=== PATIENT | female | born 1965 | race Caucasian/White ===

== ENCOUNTER → 2017-01-06 | Outpatient (CLI) | payer BC, OTHER ==
[~2017-01-06] VITALS: Ht 162.6 cm; Wt 75.1 kg
[~2017-01-06] MED LIST: AMBIEN 10 MG TA10 MG PO; AMBIEN CR12.5 MG PO; B-100 COMPLEX1 EAC1 PO; BISACODYL SUPP10 MG RE; CALCIUM; CALCIUM 500 +1 EAC5 PO; CELEBREX 200 M200 MG PO; CITRATE OF MAG296 ML PO; CLARITIN10 MG PO; EFFEXOR XR150 MG PO; FISH OIL + D31 EACH PO; FISHOIL; FLEXERIL PO; HYDROCODON-ACE1 EAC7 PO; HYDROCODON-ACE1 EAC8 PO; HYDROCODONE-AP1 EAC6 PO; HYDROCODONE-APA1 TA1 PO; LEVOTHYROXIN0.088 MG PO; MAGNESIUM250 M1 PO; MIRALAX255 GM PO; MOBIC15 MG PO; NABUMETONE 750750 M1 PO; NEURONTIN 300300 M1 PO; OMEPRAZOLE 20 M20 M1 PO; PERCOCET 5-3251 EACH PO; SYNTHROID50 MCG PO; TRAMADOL 50 MG50 MG PO; TRIAMCINOLONE16.5 GM NASAL; VITAMIN B-12100 MCG PO; VITAMIN D400 UNI1 PO; VOLTAREN GEL 1100 G1 TOP; VOLTAREN100 GM TP
--- NOTE | ~2017-01-06 | HPC ---
[facility] [place] [address] PAIN MANAGEMENT CONSULTATION Name: IZZY HORN CHIVO Room #: REG TROY Flores#: [id number] Admission: 01/06/17 Attend Phys: Delon Reyna DO Discharge: Date of : 67 Report #: [id number] THIS REPORT FOR: //name// CC: SLIME Reyna The patient is a very pleasant 51-year-old female well known to the pain clinic, typically treated for lumbar radiculopathy, myofascial pain, component of right ankle pain, all requiring complex medication management. She was last seen in the pain clinic 05/24/2016. Continued on baseline medications including meloxicam 15 mg 1 a day, Flexeril 10 mg up to t.i.d., Voltaren gel topically for low back, tramadol and hydrocodone for pain, tramadol 1 tablet t.i.d., #90 tablets with 5 refills and hydrocodone 5/325 mg #90 tablets, prescription was written for quite sometime ago. She uses it very infrequently, it appears that the last prescription was in 2014. The patient returns to pain clinic today. She notes she had been doing reasonably well with baseline concerns, right ankle had healed status post prior strain, gradual return of radicular component of pain, low back, right groin to the knee. She prior had epidural injections, right transforaminal epidural injection about a year and a half ago in April 2015, midline epidural injections in 2013. Today, she notes pain is 5/10, seems to be exacerbated with sitting and walking, driving. Gets some relief with standing with medications. PHYSICAL EXAMINATION: Shows 51-year-old female, BMI is 28.4 kilograms per meter squared. Vital signs stable as noted in the EMR. Rises from chair using armrest. Modestly antalgic gait, diffuse tenderness across the low back, positive straight leg raise on the right, decreased right hip flexion strength, positive neural tensioning patellar reflexes are brisk 3/4. Achilles reflexes 1-2/4, upper extremity deep tendon reflexes, biceps, triceps, brachioradialis1-2/4 and symmetric. K-tracs was run showing no opiate prescriptions for the past year. IMPRESSION: Myofascial pain, axial back pain and right ankle pain requiring complex medication management, stable on baseline medication. RECOMMENDATION: 1. Renew meloxicam 15 mg 1 a day, #30 tablets with 5 refills, Flexeril 10 mg b.i.d., #60 tablets with 5 refills, tramadol 50 mg t.i.d., #90 tablets with 5 refills. We will also renew hydrocodone 5/325 mg one tablet 2-3 times a day as needed for pain, limit #45 tablets typically this should last greater than a year. 2. Acute exacerbation of lumbar radiculopathy with right radicular pattern at L3 distribution. [address] [address] PAIN MANAGEMENT CONSULTATION Name: IZZY HORN [facility] Room #: REG TROY Flores#: [id number] Admission: 01/06/17 Attend Phys: Delon Reyna DO Discharge: Date of : 67 Report #: [id number] 3. Recommendation of epidural injection under fluoroscopy today at L3-L4. PROCEDURE NOTE: Lumbar epidural injection under fluoroscopy. PROCEDURE NOTE: After both written and informed consent to include risk of spinal cord damage, increased pain, weakness and dural puncture, the patient was taken to the fluoroscopy suite, placed in the prone position. After sterile prep and drape, a skin wheal with lidocaine was raised. A 22-gauge epidural Tuohy needle was inserted in the midline at L3-4 with good loss to resistance. Negative aspiration for cerebrospinal fluid or blood was noted. Then 1 mL of Omnipaque under biplanar fluoroscopy showed good spread within the epidural space. This was followed with 80 mg of triamcinolone plus 1 mL of 1.5% preservative-free Xylocaine, 0.5 mL Xylocaine was then injected to flush the needle; it was removed. The patient was monitored for an appropriate period of time and discharged in good and stable condition. By: [id number] Delon Reyna DO /nt
[2017-01-06 13:21] VITALS: BP 142/86
== END | disposition home or self-care (01) ==
LOC: PAIN 06:55
DX: M54.16 Radiculopathy, lumbar region (principal); M79.1 Myalgia; M25.571 Pain in right ankle and joints of right foot

== ENCOUNTER → 2017-09-01 | Outpatient (CLI) | payer BC, OTHER ==
[~2017-09-01] VITALS: Ht 162.6 cm; Wt 74.8 kg
--- NOTE | ~2017-09-01 | HPC ---
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 The patient has been stable on baseline medications including p.r.n. tramadol, rare hydrocodone, Meloxicam 15 mg daily, and cyclobenzaprine 10 mg b.i.d. p.r.n. Last seen in the pain clinic about 8 months ago in December 2016. The patient was given an epidural injection at that time for recurrent L3 radicular pattern and continued on baseline medications. She returns to pain clinic today noting medications are helpful, though she has developed recurrent pain recently. She notes the epidural injection at last visit afforded nearly 80% relief for 2 months, pain has recurred somewhat, but she notes overall she still has improved. She rates her subjective pain score of 4 on a VAS, pain is in the right low back, hip and groin. To the patient's credit, she is doing daily physical therapy stretches, which has been efficacious. She notes pain is getting a little worse when she ran out of Meloxicam. She notes the pain is exacerbated with sitting, driving, or climbing stairs. PHYSICAL EXAMINATION: Shows a 52-year-old female, BMI is 28.3 kg/m2. Vital signs stable as noted in the EMR. Rises from chair easily. Gait is tandem. Lower extremity strength is preserved. Modestly positive straight leg raise on the right with a slightly diminished right Achilles reflex compared to left. Patellar reflexes are preserved. She does have some subjective pain in the low back, no discrete trigger points are noted. The patient is having no problems with daytime somnolence, mental acuity changes or constipation. Behavior shown no aberrant behavior suggestive for drug diversion. ASSESSMENT: Symptomatic lumbar radiculopathy by history with acute right L5 radicular pain pattern, myofascial pain component, requiring complex medication management. RECOMMENDATIONS: 1. Resume Meloxicam 15 mg 1 a day, we did talk briefly about daily use of nonsteroidal anti-inflammatory agents and possible association of increased cardiac risk. Continue cyclobenzaprine 10 mg up to b.i.d. for spasm, again suggested nondaily usage; tramadol 50 mg 3-4 a day caution with concurrent use [address] [address] PAIN MANAGEMENT CONSULTATION Name: IZZY HORN Room #: REG TROY Flores#: [id number] Admission: 09/01/17 Attend Phys: Delon Reyna DO Discharge: Date of : 67 Report #: [id number] of selective serotonin reuptake inhibiting agent (the patient's venlafaxine was recently increased). 2. Continue Voltaren gel topically and rare use hydrocodone 5/325, dispense 45 tablets, again this lasted about 8 months last time. We will seek authorization for epidural injection under fluoroscopy at L5-S1, right of midline. She is planning on taking a [place] in early September, she would like to have epidural injection prior to that if symptoms continue. We will plan on followup appointment in early September, cancel if doing well. <ELECTRONICALLY SIGNED> By: Delon Reyna DO 09/05/17 0943 [id number] Delon Reyna DO /nt
[2017-09-01 11:30] VITALS: BP 128/80
[2017-09-01 11:33] VITALS: BP 128/80
== END ==
LOC: PAIN 08-08 07:14
DX: M54.16 Radiculopathy, lumbar region (principal); M25.571 Pain in right ankle and joints of right foot; Z79.899 Other long term (current) drug therapy

== ENCOUNTER → 2018-04-10 | Outpatient (CLI) | payer BC, OTHER ==
[~2018-04-10] VITALS: Ht 162.6 cm; Wt 74.2 kg
--- NOTE | ~2018-04-10 | HPC ---
[facility] [place] [address] PAIN MANAGEMENT CONSULTATION Name: IZZY HORN Room #: REG TROY TreverRubenNayana#: [id number] Admission: 04/10/18 Attend Phys: Ana Boyd MD Discharge: Date of : 67 Report #: [id number] THIS REPORT FOR: //name// CC: SLIME Boyd Physician staff DATE OF SERVICE: 04/10/2018 FOLLOWUP HISTORY: The patient is a 53-year-old female who has been followed in the Pain Clinic for quite some time. She has pain and discomfort involving her low back, left groin as well as her left upper leg. Feels that her medications are helpful. Rates her pain as a 2/10 with their use. Notes that she sometimes has a chronic shooting, burning discomfort. Pain is exacerbated by walking, standing or lying on the left side. Use of her medications as well as stretching are helpful. She continues to work. Feels that the Meloxicam, Flexeril, Voltaren and tramadol continuing to be efficacious and would like to have their use continued. ALLERGIES: No known drug allergies. MEDICATIONS: Flexeril 10 mg b.i.d., tramadol 50 mg q.i.d., Meloxicam 15 mg daily, Voltaren 100 mg t.i.d. p.r.n., Synthroid 0.088 mcg, Ambien 12.5 mg, triamcinolone spray nasal, Claritin 10 mg, vitamin B12 100 mcg, and Effexor 150 mg. PAST MEDICAL HISTORY: Hypothyroidism: Irritable bowel, stomach problems. PAST SURGICAL HISTORY: Unremarkable. SOCIAL HISTORY: She is a registered nurse continues to work. PAIN CLINIC ASSESSMENT: 1. The patient is not being treated for osteoarthritis. 2. The patient is not being treated for rheumatoid arthritis. 3. Height 5 feet 4 inches, weight 163 pounds, BMI is 28. 4. Vital signs: Blood pressure 136/93, pulse 94, respiratory rate 16, room air saturation 99%. 5. Pain intensity 11/01. 6. Fall risk. The patient has not fallen in the last 3 months. 7. Blood thinner. The patient is not on a blood thinning medication. 8. Hypertension. The patient has not been treated for hypertension. 9. Opioid therapy greater than 6 weeks. The patient is on contract and receives tramadol medication from the pain clinic. 10. Risk assessment tool, low risk for opioid use. 11. Functional assessment tool 43/70. [address] [address] PAIN MANAGEMENT CONSULTATION Name: IZZY HORNNADER Room #: REG [facility]#: [id number] Admission: 04/10/18 Attend Phys: Ana Boyd MD Discharge: Date of : 67 Report #: [id number] 12. Recreational drug use. The patient denies use of recreational drugs. 13. Tobacco: The patient does not smoke. 14. Alcohol. The patient drinks about one alcoholic beverage monthly. PHYSICAL EXAMINATION: GENERAL: The patient is a well-developed, well-nourished white female, appears her stated age. She is alert and oriented x 3. Affect is appropriate. HEENT: Normocephalic, atraumatic. Extraocular eye muscles intact. Sclerae are nonicteric. Mucous membranes are moist. NECK: Without adenopathy or JVD. HEART: Regular rate. ABDOMEN: Nontender. EXTREMITIES: Upper extremities, judged to be 5/5 in the major muscle groups. The patient does have some myofascial pain, discomfort involving her right ankle historically. Also, has a history of lumbar radiculopathy by history. She has undergone epidural steroid injections for a L3 lumbar radicular dermatomal distribution. Notes that has been helpful. Has some pain and discomfort in the right low back as well as the hip and groin area. IMPRESSION: 1. History of lumbar radicular pain improved with epidural steroid injection in the past. 2. Myofascial pain involving the right ankle. 3. Muscle spasms. 4. Hypothyroidism. 5. Allergies, nasal allergies. RECOMMENDATIONS: We discussed treatment options with the patient. At this juncture She will continue with her current use of meloxicam, Flexeril, Voltaren gel t.i.d. and tramadol 50 mg q.i.d. as needed. She will follow up in the near future. We would like to thank you for letting us participate in her care. We hope she continues to improve. By: [id number] Ana Boyd MD /beny
[2018-04-10 14:16] VITALS: BP 136/93
== END ==
LOC: PAIN 09-25 07:20
DX: E03.9 Hypothyroidism, unspecified (principal); M79.1 Myalgia; M54.5 Low back pain

== ENCOUNTER → 2018-10-30 | Outpatient (CLI) | payer BC, OTHER ==
[~2018-10-30] VITALS: Ht 162.6 cm; Wt 74.4 kg
[~2018-10-30] MED LIST changes: -EFFEXOR XR150 MG PO; +EFFEXOR XR75 MG PO; +ESTRADIOL1 EAC2 TRANSDERM; +MEDROLDOSEPACK PO; +QSYMIA 7.5 MG-1 EACH PO
[2018-10-30 12:43] VITALS: BP 128/83
--- NOTE | 2018-10-30 12:51 | NUR ---
Pain Clinic Assessment: 1. History of Osteoarthritis: Not Applicable History of Rheumatoid Arthritis: Not Applicable 2. Height: 5 ft. 4 in. 162.6 cm. Weight: 164.0 lb. oz. 74.390 kg. Patient's BMI: 28.1 3. Vital Signs: BP: 128/83 Pulse: 86 Resp: 14 Temp: 02 Sat: 99 ECG Mon: 4. Pain Intensity: 5-6 TODAY 5. Fall Risk: Dizziness: N Needs help standing or walking: N Fallen in the last 3 months: N Fall risk comments: 6. Patient on Blood Thinner: None 7. History of Hypertension: N 8. Opioid Therapy greater than 6 weeks: Y Opiate Contract Signed: 9. Risk Assessment Tool Provided: LOW RISK 09/24 10. Functional Assessment Tool: 11. Recreational Drug Use: Never Drug Type: Tobacco Use: Never Smoker Tobacco Type: Amount or Packs/day: How Many Years: Alcohol Use: Yes Frequency: Quant:
--- NOTE | 2018-11-04 08:13 | HPC ---
[facility] [address] [address] PAIN MANAGEMENT CONSULTATION Name: IZZY HORNNADER Room #: REG TROY Sandra#: [id number] Admission: 10/30/18 Attend Phys: Ana Boyd MD Discharge: Date of : 67 Report #: [id number] THIS REPORT FOR: //name// CC: SLIME Boyd Physician staff DATE OF SERVICE: 10/30/2018 CHIEF COMPLAINT: Here for medication renewal. I am having pain down in my sciatic nerve. FOLLOWUP HISTORY: The patient is a 53-year-old female. She has been followed in the pain clinic because of chronic pain. She has been experiencing her low back and has noted increased pain in the right groin area. Pain is radiating down into the buttocks, posterior thigh and down into the lateral portion of her foot. Describes as a burning, constant, shooting, rates it as a 5-6 at this point. Pain is exacerbated with prolonged sitting, walking or lying on her left side, improves with stretching as well as with her medications. Feels that her medications of tramadol, cyclobenzaprine, Voltaren gel and Mobic continue to be efficacious. She would like to have these medications renewed. She has been following her 's health is quite closely. She developed a nodule in the roof of his mouth had a positive nodule on his neck. She received chemotherapy for a number of months for this. Things at this point seem to be doing reasonably well. ALLERGIES: No known drug allergies. CURRENT MEDICATIONS: Flexeril 10 mg b.i.d., tramadol 50 mg, meloxicam 15 mg, Voltaren 100 mg t.i.d., Synthroid 0.088 mcg, Ambien 12.5 mg, triamcinolone nasal spray, Claritin 10 mg, vitamin B12 100 mcg, Effexor 150 mg. PAIN CLINIC ASSESSMENT/PQRS: 1. The patient is not being treated for osteoarthritis. She has not been treated for rheumatoid arthritis. 2. Height 5 feet 4 inches, weight 164 pounds, BMI is 28. 3. Vital signs: Blood pressure 128/83, pulse 86, respiratory rate 14, room air saturation 99%. 4. Pain intensity 5-6/10. 5. Fall risk. The patient has not fallen in the last 3 months. 6. Blood thinner. The patient is not on a blood thinning medication. 7. Hypertension. The patient is not being treated for hypertension. 8. Opioid greater than 6 weeks. The patient received some medications and use tramadol to help control her pain. 9. Risk assessment tool 1/3 low risk for opioid use. 10. Functional assessment tool 43/70, recreational [place] [address] PAIN MANAGEMENT CONSULTATION Name: IZZY HORN Room #: REG [facility] Sandra#: [id number] Admission: 10/30/18 Attend Phys: Ana Boyd MD Discharge: Date of : 67 Report #: [id number] denies use of recreational drugs. 11. Tobacco: The patient has never smoked. 12. Alcohol: The patient drinks alcoholic beverages on rare occasion. PHYSICAL EXAMINATION: GENERAL: The patient is a well-developed, well-nourished white female. Appears her stated age. She is alert and oriented x 3. Her affect is appropriate. Speech is fluent. HEENT: Normocephalic, atraumatic. Extraocular eye muscles intact. Sclerae nonicteric. Mucous membranes are moist. NECK: Without adenopathy or JVD. HEART: Regular. ABDOMEN: Nontender. Bowel sounds present. EXTREMITIES: Upper extremity muscle strength is judged to be 5/5 for the major muscle groups in the upper extremity. The patient without significant scoliosis, kyphosis or lordosis. She is experiencing pain and discomfort in the L5-S1 dermatomal distribution on the right with pain that is radiating down her buttocks, posterior portion of her thigh, calf area and lateral portion of her foot. IMPRESSION: 1. History of lumbar radicular pain, L5-S1 dermatomal distribution. 2. Myofascial pain involving the right ankle. 3. Muscle spasms. 4. Hypothyroidism. 5. Allergies. 6. with recent chemotherapy for malignancy (lymphoma). RECOMMENDATIONS: We discussed treatment options with the patient. At this juncture, she continues to have pain, which is quite problematic involving the right L5-S1 dermatomal distribution with sciatic pain. She goes from a sitting to a standing position during our interview. States that she can only sit for so long because of the pain and from her sciatic nerve. At this juncture, we will try a conservative approach. The patient will be given a Medrol Dosepak, which she will take at this juncture. Hopefully, it helps with decreasing the pain and discomfort. If she should need in the future, she could return at which time we could proceed with an epidural steroid injection to help quell the sciatic pain involving her low back. A script for her medications have been rewritten. She will continue with tramadol 50 mg one p.o. q.6 hours p.r.n., cyclobenzaprine 60 tablets 10 mg 1 p.o. b.i.d., Voltaren 100 mg topical t.i.d., meloxicam 15 mg daily. We would like to thank you for letting us participate in her care. We hope she continues to improve. <ELECTRONICALLY SIGNED> By: Ana Boyd MD 11/04/18 0813 [id number] Ana Boyd MD /nt
== END ==
LOC: PAIN 07:20
DX: M54.16 Radiculopathy, lumbar region (principal); M62.838 Other muscle spasm; E03.9 Hypothyroidism, unspecified; Z80.8 Family history of malignant neoplasm of other organs or systems; Z79.899 Other long term (current) drug therapy

== ENCOUNTER → 2019-06-02 | Outpatient (CLI) | payer BC, OTHER ==
[~2019-06-02] VITALS: Ht 162.6 cm; Wt 70.1 kg
[~2019-06-02] MED LIST changes: +SEROQUEL 25 MG25 M1 PO; +WELLBUTRIN 75 M75 M1 PO
[2019-06-02 14:34] VITALS: BP 127/84
--- NOTE | 2019-06-02 14:35 | NUR ---
Pain Clinic Assessment: 1. History of Osteoarthritis: Not Applicable History of Rheumatoid Arthritis: Not Applicable 2. Height: 5 ft. 4 in. 162.6 cm. Weight: 154.6 lb. oz. 70.126 kg. Patient's BMI: 26.5 3. Vital Signs: BP: 127/84 Pulse: 84 Resp: 18 Temp: 02 Sat: 100 ECG Mon: 4. Pain Intensity: 6 OVERALL 10 WITH LIFTING 5. Fall Risk: Dizziness: N Needs help standing or walking: N Fallen in the last 3 months: N Fall risk comments: 6. Patient on Blood Thinner: None 7. History of Hypertension: N 8. Opioid Therapy greater than 6 weeks: Y Opiate Contract Signed: 9. Risk Assessment Tool Provided: LOW RISK 09/24 10. Functional Assessment Tool: 11. Recreational Drug Use: Never Drug Type: Tobacco Use: Never Smoker Tobacco Type: Amount or Packs/day: How Many Years: Alcohol Use: Yes Frequency: Quant:
--- NOTE | 2019-06-03 13:23 | HPC ---
[facility] [address] [place] [address] PAIN MANAGEMENT CONSULTATION Name: KORYIZZY MIKENADER Room #: REG [facility] Sandra#: [id number] Admission: 06/02/19 ������������������ Attend Phys: Adelaide Tsai Discharge: ������������������ Date of : 67 Report #: [id number] THIS REPORT FOR: //name// CC: Adelaide GONZALES DO Physician staff DATE OF SERVICE: 06/02/2019 CHIEF COMPLAINT: Right sciatica pain and cervical radiculopathy. HISTORY OF PRESENT ILLNESS: This is a 54-year-old female who returns to the pain clinic today for refill of her medications that she uses to help treat her ongoing low back pain that does radiate into her left buttock, currently not into her leg, but occasionally it does extend to that point. She is also experiencing right neck and shoulder pain. She feels that this has been aggravated since she help move her daughter to [place] to start a new job. She was busy packing and carrying heavy boxes at multiple levels of stairs. Today, she rates her pain at a 6 overall that it can be as high as a 10 when she is working. It is a burning, constant, shooting pain better with her medications as well as doing stretching exercises that she has been taught over the years, that activity and walking have been aggravating it. She was last seen for medications in October and has done quite well until this recent flare. Today, she would like to discuss possible injections and refills of medications. ALLERGIES: No known drug allergies. CURRENT LIST OF MEDICATIONS: Tramadol 50 mg 4 times a day p.r.n., Seroquel 25 mg at bedtime, bupropion 75 mg daily, Estrace weekly, meloxicam 15 mg daily, Voltaren gel as needed, Flexeril 10 mg b.i.d. p.r.n., Synthroid 88 mcg daily, Ambien 12.5 mg at bedtime, loratadine 10 mg daily and vitamin B12 daily. PQRS: 1. She is not being treated for osteoarthritis and not being treated for rheumatoid arthritis. 2. Height is 5 feet 4 inches, weight is 154, BMI is 24. 3. Vital signs 127/84, pulse is 84, respirations 18, oxygen sat is 100. 4. Pain score is 6/10 to 10/10. 5. Denies dizziness, does not need help walking or standing, has not fallen in the last 3 months. 6. The patient is not on any blood thinners or medicine for hypertension. 7. Opioid therapy is greater than 6 weeks; therefore, an opioid signed contract is on the chart. Risk assessment is low. Functional assessment is 43/70. 8. Recreational drug use, she denies. She is not a smoker and occasionally drinks alcohol. [address] [address] PAIN MANAGEMENT CONSULTATION Name: IZZY HORN CHIVO [id number] Admission: 06/02/19 ������������������ Attend Phys: Adelaide Tsai Discharge: ������������������ Date of : 67 Report #: [id number] According to the prescription monitoring system, patient is filling her meds appropriately. Has not needed her tramadol since February to be filled and the rest of her medication for refill authorizations. PHYSICAL EXAMINATION: GENERAL: This is a well-developed, well-nourished white female who appears her stated age. She is alert and orientated. Her affect is appropriate. HEENT: Normocephalic, atraumatic. Extraocular muscles are intact. Mucous membranes are moist. NECK: Without adenopathy or JVD. MUSCULOSKELETAL: She does complain of right neck pain that radiates into her shoulder. Pain is elicited with lateral tilt and [id number]-[id number] range of motion. She does not have pain with flexion and extension. EXTREMITIES: Upper extremity strength judged to be 5/5 in all major muscle groups. She has pain in her trapezius muscle of her right shoulder. No pain with flexion and extension, or rotation of her right shoulder. Also experiencing pain and discomfort in the L5-S1 dermatomal distribution on the right side that radiates into her buttock. She walks with a normal gait. She is without significant scoliosis, kyphosis or lordosis. IMPRESSION: 1. History of lumbar radicular pain following the L5-S1 dermatomal distribution. 2. Myofascial pain. 3. Muscle spasms. 4. Cervical radiculopathy. 5. Hypothyroidism. We reviewed the fact that opiate medications are being used to provide analgesia adequate to support activities of daily living, not attempting to achieve a specific pain score on the 0-10 Visual Analog Scale. The current opiate medications are providing sufficient analgesia to allow the patient to participate in activities of daily living. The patient is not exhibiting any aberrant behavior suggestive of drug diversion. The patient is not having any adverse reactions to medications. The patient is not suffering from daytime somnolence or mental acuity changes. The patient is managing opiate-induced constipation with appropriate aary-hfm-hubuxkv agents and dietary considerations. The patient was counseled on concern for caution with operating a motor vehicle while using opiate medications. A physical exam was performed and the patient's functional status was evaluated. All patients with back pain were advised against the bed rest greater than 4 days and were advised to return to normal activities. Pain score assessment was noted and the treatment plan was reviewed with the patient. All current medications, both prescribed and OTC were reviewed and reconciled on the [facility] [address] [place] [address] PAIN MANAGEMENT CONSULTATION Name: IZZY HORNNADER Room #: REG TROY Garrido.#: [id number] Admission: 06/02/19 ������������������ Attend Phys: Adelaide Tsai Discharge: ������������������ Date of : 67 Report #: [id number] electronic medical record. Tobacco screening was accomplished and smoking cessation was advised when indicated. BMI was noted and diet/exercise modification was recommended for all patients following outside normal parameters. I reviewed with the patient today their responsibilities to safeguard prescription medications, reviewed their responsibility to utilize medications only as prescribed by the physician. They are to seek and receive pain medications only from 1 physician group ( [facility]). They are to use 1 pharmacy and keep the clinic informed if they change pharmacies. Their responsibilities include making followup visits in a timely fashion and to avoid abrupt discontinuation of medication usage. Their responsibilities further include bringing their medications (bottles from the pharmacy with residual pills) to the visit for possible confirmation of pill counts and the patient understands it is their responsibility to submit to random drug screens to ensure both that the medications prescribed are present, and that no other controlled substances are present. All prescriptions provided today were generated electronically. PLAN: 1. We discussed treatment options with the patient today. The patient has had a recent flare in her cervical radiculopathy due to recent moving of her daughter. I think it is reasonable to first try a Medrol Dosepak since she is also having increased pain in her right sciatica, lumbar radiculopathy. If this is not helpful, she can call for an appointment for an epidural injection from Dr. Tyrell Boyd either in her cervical spine or lumbar spine, which she has experienced both in the past and had significant improvement in both areas. 2. Scripts were refilled today for her Flexeril 10 mg, #60 with 5 additional refills, meloxicam 15 mg, #30 with 5 additional refills, her tramadol 50 mg, #120 with 5 additional refills and the Medrol Dosepak. 3. The patient was instructed not to get a flu shot until after she has finished her Medrol Dosepak and also has determined if she does not need an epidural injection, encouraging her to wait for the flu vaccination that she is required to have one through work until after her symptoms have resolved or dissipated. 4. The patient is seen in collaboration with Dr. Tyrell Boyd who did see the patient as well today. ��������������������������������������������� <ELECTRONICALLY SIGNED> ���������������������������������������� By: Adelaide Tsai ��������������������������������������������� 06/03/19 1323 [id number] Adelaide Tsai /beny
== END ==
LOC: PAIN 07:09
DX: M54.12 Radiculopathy, cervical region (principal); M54.16 Radiculopathy, lumbar region; E03.9 Hypothyroidism, unspecified; M79.18 Myalgia, other site; Z79.899 Other long term (current) drug therapy

== ENCOUNTER → 2019-12-03 | Outpatient (CLI) | payer BC, OTHER ==
[~2019-12-03] VITALS: Ht 162.6 cm; Wt 69.9 kg
[~2019-12-03] MED LIST changes: -LEVOTHYROXIN0.088 MG PO; +SYNTHROID75 MCG PO
--- NOTE | 2019-12-03 08:17 | NUR ---
Pain Clinic Assessment: 1. History of Osteoarthritis: NONE History of Rheumatoid Arthritis: NONE 2. Height: ft. in. cm. Weight: lb. oz. kg. Patient's BMI: 3. Vital Signs: BP: Pulse: Resp: Temp: 02 Sat: ECG Mon: 4. Pain Intensity: 6 5. Fall Risk: Dizziness: Needs help standing or walking: Fallen in the last 3 months: Fall risk comments: 6. Patient on Blood Thinner: None 7. History of Hypertension: N 8. Opioid Therapy greater than 6 weeks: Y Opiate Contract Signed: 9. Risk Assessment Tool Provided: LOW RISK 09/24 10. Functional Assessment Tool: 11. Recreational Drug Use: Never Drug Type: Tobacco Use: Never Smoker Tobacco Type: Amount or Packs/day: How Many Years: Alcohol Use: Yes Frequency: Weekly Quant:
--- NOTE | 2019-12-03 10:13 | HPC ---
[facility] [place] [address] [place] [address] PAIN MANAGEMENT CONSULTATION Name: IZZY HORN Room #: REG [facility].#: [id number] Admission: 12/03/19 Attend Phys: Adelaide Tsai Discharge: Date of : 67 Report #: [id number] THIS REPORT FOR: cc: SLIME GONZALES Physician not on staff Adelaide Tsai ~ CC: Adelaide GONZALES Physician staff DATE OF SERVICE: 12/03/2019 CHIEF COMPLAINT: Low back pain, right leg pain, neck pain. HISTORY OF PRESENT ILLNESS: This is a 54-year-old female who returns to the pain clinic today for refill of her medications. Today, she is reporting no pain, but her pain does increase as the day progresses when she is more active and walking at work. She has pain in her lower back that radiates into her right leg and also neck pain that radiates into her right shoulder. She said at times it can be shooting, burning, cramping pain, but she feels that the tramadol and her meloxicam are very beneficial as well as stretching. She denies any problems with constipation or daytime sleepiness as a result of her medications. She would like refills of her medications today. The patient reports to our staff that she recently returned from [place] last week from seeing her who has been working there. 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 She has not had any syptoms of Coronovirus. ALLERGIES: No known drug allergies. CURRENT LIST OF MEDICATIONS: Voltaren gel, meloxicam 15 mg, Flexeril, tramadol 50 mg p.r.n., Seroquel, Wellbutrin, estradiol, Synthroid, Ambien, Claritin and vitamin B12. PQRS: 1. She is not being treated for osteoarthritis or rheumatoid arthritis. 2. Height is 5 feet 4 inches, temperature was 98.1. Pain score is 6. 3. Fall risk. Denies dizziness, does not need help walking or standing, has not fallen in the last 3 months. The patient is not on any blood thinners or medicines for hypertension. Her opioid therapy is greater than 6 weeks; therefore, an opioid signed contract is on the chart. Risk assessment tool is low. Functional assessment is 43/70. 4. Recreational drug use, she denies. She is not a smoker and occasionally drinks alcohol. [address] [address] PAIN MANAGEMENT CONSULTATION Name: IZZY HORN CHIVO Room #: REG CLI [facility]#: [id number] Admission: 12/03/19 Attend Phys: Adelaide Tsai Discharge: Date of : 67 Report #: [id number] According to the prescription monitoring system, the patient is filling appropriately for her medications. She does not fill on a monthly basis since she takes her tramadol very sparingly. According to the CDC guidelines, she is below 50 morphine mEq. PHYSICAL EXAMINATION: GENERAL: This is a well-developed, well-nourished, well-hydrated 54-year-old female who appears her stated age. Her affect is appropriate. She is alert and orientated. HEENT: Normocephalic, atraumatic. Extraocular eye muscles are intact. Mucous membranes are moist. MUSCULOSKELETAL: She is without significant kyphosis or lordosis. She has discomfort in the L5-S1 dermatomal distribution on her lower lumbar spine that radiates into her right leg down the posterior aspect of her thigh. She has pain and tenderness in her neck, radiates down her right shoulder. Her upper extremity and lower extremity strength judged to be 5/5 in all major muscle groups. She walks with a normal gait. IMPRESSION: 1. History of lumbar radiculopathy at the L5-S1 dermatomal distribution. 2. Muscle spasms. 3. Complex medical management under terms of written opioid agreement. We reviewed the fact that opiate medications are being used to provide analgesia adequate to support activities of daily living, not attempting to achieve a specific pain score on the 0-10 Visual Analog Scale. The current opiate medications are providing sufficient analgesia to allow the patient to participate in activities of daily living. The patient is not exhibiting any aberrant behavior suggestive of drug diversion. The patient is not having any adverse reactions to medications. The patient is not suffering from daytime somnolence or mental acuity changes. The patient is managing opiate-induced constipation with appropriate sosd-muu-ipcafcx agents and dietary considerations. The patient was counseled on concern for caution with operating a motor vehicle while using opiate medications. A physical exam was performed and the patient's functional status was evaluated. All patients with back pain were advised against the bed rest greater than 4 days and were advised to return to normal activities. Pain score assessment was noted and the treatment plan was reviewed with the patient. All current medications, both prescribed and OTC were reviewed and reconciled on the electronic medical record. Tobacco screening was accomplished and smoking cessation was advised when indicated. BMI was noted and diet/exercise modification was recommended for all patients following outside normal parameters. I reviewed with the patient today [facility] [address] [address] PAIN MANAGEMENT CONSULTATION Name: IZZY HORN Room #: REG TROY Flores#: [id number] Admission: 12/03/19 Attend Phys: Adelaide Tsai Discharge: Date of : 67 Report #: [id number] prescription medications, reviewed their responsibility to utilize medications only as prescribed by the physician. They are to seek and receive pain medications only from 1 physician group ( [facility]). They are to use 1 pharmacy and keep the clinic informed if they change pharmacies. Their responsibilities include making followup visits in a timely fashion and to avoid abrupt discontinuation of medication usage. Their responsibilities further include bringing their medications (bottles from the pharmacy with residual pills) to the visit for possible confirmation of pill counts and the patient understands it is their responsibility to submit to random drug screens to ensure both that the medications prescribed are present, and that no other controlled substances are present. All prescriptions provided today were generated electronically. PLAN: We discussed treatment options with the patient today. The patient finds her medications very beneficial. 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 She finds the meloxicam very beneficial and she does take tramadol, though not on a daily basis. We will refill her medications today for tramadol 50 mg #120 with 5 refills, meloxicam 50 mg, #30 with 5 refills and Flexeril 10 mg, #60 with 5 refills. These will be sent electronically to her pharmacy. The patient reminded that she needs to return every 6 months for medication refills and encouraged to call if she feels that she needs any steroid injections in the future to help with her neck or back pain. The patient is seen in collaboration with Dr. Tyrell Boyd. <ELECTRONICALLY SIGNED> By: Adelaide Tsai 12/03/19 1013 [id number] Adelaide Tsai /nt
== END ==
LOC: PAIN 06:38
DX: M54.16 Radiculopathy, lumbar region (principal); M62.838 Other muscle spasm; Z79.899 Other long term (current) drug therapy; Z79.891 Long term (current) use of opiate analgesic

== ENCOUNTER → 2020-06-14 | Outpatient (CLI) | payer BC, OTHER ==
[~2020-06-14] VITALS: Ht 162.6 cm; Wt 73.9 kg
[~2020-06-14] MED LIST changes: +AMITRIPTYLINE H25 M2 PO; +ZETIA10 MG PO
--- NOTE | ~2020-06-14 | HPC ---
[facility] [address] [place] [address] PAIN MANAGEMENT CONSULTATION Name: IZZY HORN Room #: REG TROY GarridoNayana#: [id number] Admission: 06/14/20 Attend Phys: Ana Boyd MD Discharge: Date of : 67 Report #: [id number] CC: SLIME Boyd Physician staff DATE OF SERVICE: 06/14/2020 CHIEF COMPLAINT: Increased back pain and spasms after doing some yard work. HISTORY: The patient is a 55-year-old female who has been followed in the Pain Clinic. She has pain in her back and noticed some increased pain and discomfort radiating down into her right leg. She has suffered from lumbar radiculopathy in the past. She has noticed worsening of pain since working out in her yard. She rates her pain as a 4/10. Pain is worse with sitting and walking. Pain improves with stretching as well as with medication. She has used a Medrol Dosepak in the past. She would like to try an additional packet of prednisone to help with the pain. She states that her 's health is reasonably stable at this juncture. ALLERGIES: No known drug allergies. CURRENT MEDICATIONS: Flexeril 10 mg 1 p.o. b.i.d., tramadol 50 mg, meloxicam 15 mg, Voltaren gel 100 mg t.i.d., Synthroid 0.088 mcg, Ambien 12.5 mg, triamcinolone nasal spray, Claritin 10 mg, vitamin B12 of 100 mcg, and Effexor 150 mg. PAIN CLINIC ASSESSMENT AND PQRS: 1. The patient is not being treated for osteoarthritis. She is not being treated for rheumatoid arthritis. 2. Height 5 feet 4 inches, weight 163 pounds, BMI is 28. 3. Vital signs: Blood pressure 128/80, pulse 87, respiratory rate 14, and room air saturation is 100%. 4. Pain intensity 10. 5. Fall risk. The patient has not fallen in the last 3 months. 6. Blood thinner. The patient is not on a blood thinning medication. 7. Hypertension. The patient is not being treated for hypertension. 8. Opioids greater than 6 weeks. The patient receives medications from the Pain Clinic. 9. Risk assessment tool, low for opioid use. 10. Recreational drug use. The patient denies. 11. Functional assessment tool 43/. 12. Tobacco: The patient has never smoked. 13. Alcohol: The patient occasionally drinks alcoholic beverages. PHYSICAL EXAMINATION: GENERAL: The patient is a well-developed, well-nourished white female. Appears her stated age. She is alert and oriented x 3. Her affect is appropriate. Speech is fluent. HEENT: Normocephalic, atraumatic. Extraocular eye muscles intact. Sclerae are nonicteric. The patient is wearing a facial covering. NECK: Without adenopathy or JVD. HEART: Regular rate. ABDOMEN: Nontender. Bowel sounds present. EXTREMITIES: Upper extremity muscle strength judged to be 5/5 for the major muscle groups in the upper extremity. MUSCULOSKELETAL: The patient without significant scoliosis, kyphosis or lordosis. The patient is experiencing some pain and discomfort in the L5-S1 distribution. His pain is radiating down into her buttocks and into the posterior portion of her thigh, calf and into her foot. IMPRESSION: 1. History of lumbar radiculopathy and pain in the L5-S1 with recurrence after working out in the yard. 2. Myofascial pain involving the right ankle. 3. Muscle spasms. 4. Hypothyroidism. 5. Allergies. 6. continues to be treated for lymphoma. RECOMMENDATIONS: We discussed treatment options with the patient. At this juncture, she feels that the steroid medications have been helpful. We will provide the patient with a Medrol Dosepak will be sent to her pharmacy. The patient will also continue with hydrocodone 5/325 one p.o. as directed. She will also continue with Flexeril 10 mg b.i.d. She will use Elavil 25 mg up to 2 tablets at bedtime. She will call us if she has any concerns. We would like to thank you for letting us participate in her care. We hope she continues to improve. By: [id number] Ana Boyd MD /nt
[2020-06-14 14:10] VITALS: BP 128/80
--- NOTE | 2020-06-14 14:24 | NUR ---
Pain Clinic Assessment: 1. History of Osteoarthritis: NONE History of Rheumatoid Arthritis: NONE 2. Height: 5 ft. 4 in. 162.6 cm. Weight: 163.0 lb. oz. 73.936 kg. Patient's BMI: 28.0 3. Vital Signs: BP: 128/80 Pulse: 87 Resp: 14 Temp: 02 Sat: 100 ECG Mon: 4. Pain Intensity: 4 5. Fall Risk: Dizziness: N Needs help standing or walking: N Fallen in the last 3 months: N Fall risk comments: 6. Patient on Blood Thinner: None 7. History of Hypertension: N 8. Opioid Therapy greater than 6 weeks: Y Opiate Contract Signed: 9. Risk Assessment Tool Provided: LOW RISK 1 10. Functional Assessment Tool: 43/ 11. Recreational Drug Use: Never Drug Type: Tobacco Use: Never Smoker Tobacco Type: Amount or Packs/day: How Many Years: Alcohol Use: Yes Frequency: Quant:
== END ==
LOC: PAIN 06:51
PROVIDERS: ATTEND Anesthesiology Pain Medicine
DX: M62.838 Other muscle spasm (principal); E03.9 Hypothyroidism, unspecified; Z87.39 Personal history of other diseases of the musculoskeletal system and connective tissue; Z88.8 Allergy status to other drugs, medicaments and biological substances; Z79.899 Other long term (current) drug therapy

== ENCOUNTER → 2021-01-10 | Outpatient (CLI) | payer BC, OTHER ==
[~2021-01-10] VITALS: Ht 162.6 cm; Wt 74.6 kg
[~2021-01-10] MED LIST changes: +AMITRIPTYLINE H50 M2 PO; +LUNESTA1 MG PO
[2021-01-10 13:38] VITALS: BP 150/94
--- NOTE | 2021-01-10 13:56 | NUR ---
Pain Clinic Assessment: 1. History of Osteoarthritis: LUMBAR SPINE History of Rheumatoid Arthritis: NONE 2. Height: 5 ft. 4 in. 162.6 cm. Weight: 164.4 lb. oz. 74.571 kg. Patient's BMI: 28.2 3. Vital Signs: BP: 150/94 Pulse: 95 Resp: 16 Temp: 02 Sat: 100 ECG Mon: 4. Pain Intensity: 4 5. Fall Risk: Dizziness: N Needs help standing or walking: N Fallen in the last 3 months: N Fall risk comments: 6. Patient on Blood Thinner: None 7. History of Hypertension: N 8. Opioid Therapy greater than 6 weeks: Y Opiate Contract Signed: 9. Risk Assessment Tool Provided: LOW RISK 1 10. Functional Assessment Tool: 43/ 11. Recreational Drug Use: Never Drug Type: Tobacco Use: Never Smoker Tobacco Type: Amount or Packs/day: How Many Years: Alcohol Use: Yes Frequency: Monthly Quant: 1
--- NOTE | 2021-01-18 15:30 | HPC ---
[facility] [address] [place] [address] PAIN MANAGEMENT CONSULTATION Name: IZZY HORN Room #: REG [facility].#: [id number] Admission: 01/10/21 Attend Phys: Adelaide Tsai Discharge: Date of : 67 Report #: [id number] THIS REPORT FOR: cc: IGOR DICKINSON Physician not on staff Adelaide Tsai ~ DOC #: [id number] cc: Anna Boyd MD, Igor Dickinson DO DATE OF SERVICE: 01/10/2021 CHIEF COMPLAINT: Low back pain with radiculopathy. HISTORY OF PRESENT ILLNESS: This is a 55-year-old pleasant female who is well known to the pain clinic. Today, she is returning for a refill on her opioid medications and adjunct medications. She finds these most beneficial in helping control of her pain that she experiences from her mid back at the bra line level to the lower back with occasional radiation into her legs. So today she is not experiencing any radiculopathy. She describes her pain as a sharp, shooting, stabbing sensation that is worse with prolonged sitting. Though she did have an episode this weekend with gardening that did increase her pain quite significantly. This caused severe muscle spasms. Overall, she believes, walking and stretching have been beneficial as well as her medications. We typically see the patient on an every month basis for her medication refills. She denies any daytime somnolence or constipation as a result of these medications. ALLERGIES: No known drug allergies. MEDICATIONS: Current list of medications: Lunesta, Flexeril, meloxicam, tramadol 50 mg p.r.n., amitriptyline, hydrocodone, Zetia, Voltaren gel, Seroquel, Wellbutrin, estradiol, Synthroid, Claritin, and vitamin B12. PQRS: 1. 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 Denies any rheumatoid arthritis. 2. Height is 5 feet 4 inches, weight is 164, BMI is 28. 3. Vital signs 150/94, pulse is 95, respirations 16, oxygen sat is 100. 4. Pain score is 4/10. 5. Denies dizziness. Does not need help walking or standing. Has not fallen in the last 3 months. 6. The patient is not on any blood thinners, but does take medicine for hypertension. 7. Opiate therapy is greater than 6 weeks. Therefore, an opiate signed contract is on the chart. Risk assessment is low. Functional assessment is 43. 8. Recreational drug use, she denies. She is not a smoker and occasionally [address] [address] PAIN MANAGEMENT CONSULTATION Name: KORYIZZY CHIVO Room #: REG [facility] Sandra#: [id number] Admission: 01/10/21 Attend Phys: Adelaide Tsai Discharge: Date of : 67 Report #: [id number] drinks alcohol. According to the prescription monitoring, she is feeling in a timely fashion. Morphine milliequivalent is 50 MME or less. PHYSICAL EXAMINATION: GENERAL: This is a well-developed, well-nourished white female who appears her of stated age, rating her pain score at 4/10. Her affect is appropriate and her speech is fluent. HEENT: Normocephalic, atraumatic. Extraocular eye muscles are intact. She is wearing a facial mask. NECK: Without adenopathy or JVD. EXTREMITIES: Upper extremity strength judged to be symmetrical at 5/5. MUSCULOSKELETAL: The patient is without scoliosis or kyphosis or lordosis. She has discomfort in her mid thoracic region and lower back following L5-S1 dermatomal distribution that radiates into her buttocks, but not down her legs. Today tightness in her lumbar paraspinal musculature. IMPRESSION: 1. Lumbar radiculopathy with a history of L5-S1. 2. Myofascial pain. 3. Hypothyroidism. 4. Chronic low back and thoracic pain. 5. Complex medical management under terms of written opioid agreement. PLAN: 1. We discussed treatment options with the patient today. 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 Does have flares with increased activity. The patient is requesting refills of all of her medication as well as a refill of her hydrocodone that she takes very sparingly. Dr. Boyd provided her 30 pills in May and she has returned with one tablet left, I believe that we will be able to continue that for more severe pain issues. 2. We will offer her Medrol Dosepak that she may take if she has a significant flare as well, keeping her from seeing us for epidurals, which she has had in the past and enabling her to continue to work. Script sent today for amitriptyline 50 mg tablets 1 tablet at bedtime, #30 with 5 refills, Flexeril 10 mg b.i.d., #45 with 5 refills, Meloxicam 15 mg #30 with 5 refills, Medrol Dosepak in case of increased pain, hydrocodone 5/325, #30 for severe pain and finally tramadol 50 mg q.i.d., #120 with 5 additional refills that will be sent by Dr. Tyrell Boyd. The patient will return in 6 months or as needed. Time spent with the patient in consultation, reviewing recent studies and clinical notes, physical examination and correlation of physical findings and medical documentation to determine treatment options is 12 minutes. Time spent in preparation for appointment, reviewing Prescription Monitoring system, [facility] [address] [place] [address] PAIN MANAGEMENT CONSULTATION Name: IZZY HORN Room #: REG [facility]..#: [id number] Admission: 01/10/21 Attend Phys: Adelaide Tsai Discharge: Date of : 67 Report #: [id number] reviewing previous records and treatment options and reviewing current medications is 5 minutes. Time spent preparing and sending electronic prescriptions with collaborating physician, Dr. Tyrell Boyd, documentation of visit and plan of treatment is 5 minute. Total time is 22 minutes. GREGG Andrews/[facility] [place]ARA <ELECTRONICALLY SIGNED> By: Adelaide Tsai 01/18/21 1530 [id number] [id number] Adelaide Tsai /nt
== END ==
LOC: PAIN 12:10
PROVIDERS: ATTEND Clinical Nurse Specialist Adult Health
DX: M54.16 Radiculopathy, lumbar region (principal); M79.10 Myalgia, unspecified site; G89.29 Other chronic pain; E03.9 Hypothyroidism, unspecified; F11.20 Opioid dependence, uncomplicated

== ENCOUNTER → 2021-08-08 | Outpatient (CLI) | payer BC, OTHER ==
[~2021-08-08] VITALS: Ht 162.6 cm; Wt 73.8 kg
[2021-08-08 13:03] VITALS: BP 126/81
--- NOTE | 2021-08-08 13:09 | NUR ---
Pain Clinic Assessment: 1. History of Osteoarthritis: LUMBAR SPINE History of Rheumatoid Arthritis: NONE 2. Height: 5 ft. 4 in. 162.6 cm. Weight: 162.8 lb. oz. 73.846 kg. Patient's BMI: 27.9 3. Vital Signs: BP: 126/81 Pulse: 90 Resp: 16 Temp: 02 Sat: 98 ECG Mon: 4. Pain Intensity: 9-10 5. Fall Risk: Dizziness: N Needs help standing or walking: N Fallen in the last 3 months: N Fall risk comments: 6. Patient on Blood Thinner: None 7. History of Hypertension: N 8. Opioid Therapy greater than 6 weeks: Y Opiate Contract Signed: 9. Risk Assessment Tool Provided: LOW RISK 1 10. Functional Assessment Tool: 43 11. Recreational Drug Use: Never Drug Type: Tobacco Use: Never Smoker Tobacco Type: Amount or Packs/day: How Many Years: Alcohol Use: Yes Frequency: Quant:
== END ==
LOC: PAIN 11:33
PROVIDERS: ATTEND Clinical Nurse Specialist Adult Health
DX: M54.16 Radiculopathy, lumbar region (principal); M79.18 Myalgia, other site; G89.29 Other chronic pain; Z79.899 Other long term (current) drug therapy